=== PATIENT | male | born 1945 ===

== ENCOUNTER 2023-09-10 08:47 | Outpatient (REF) | payer MEDICARE, SELFPAY | END 2023-09-10 08:48 | disposition home or self-care (01) | LOC: HO.SH 08:47 | PROVIDERS: Visit Provider Physician Assistant | DX: Z01.10 Encounter for examination of ears and hearing without abnormal findings (principal); H90.3 Sensorineural hearing loss, bilateral | CPT/HCPCS: 92557; 92567 ==